=== PATIENT | male | born 1995 | race Caucasian/White ===

== ENCOUNTER 2017-02-24 13:23 | Emergency (ER) | payer OTHER | END 2017-02-24 13:51 | disposition home or self-care (01) | LOC: ER1 13:23 | DX: H61.23 Impacted cerumen, bilateral (principal); F17.210 Nicotine dependence, cigarettes, uncomplicated | CPT/HCPCS: 69210; 99282 ==

== ENCOUNTER 2022-04-12 17:29 | Emergency (ER) | payer SELFPAY | END 2022-04-12 20:47 | disposition left against medical advice (07) | LOC: ER1 17:29 | DX: Z53.21 Procedure and treatment not carried out due to patient leaving prior to being seen by health care provider (principal) ==